=== PATIENT | male | born 1955 | race Caucasian/White ===

== ENCOUNTER 2016-03-27 08:36 | Observation (INO) | payer OTHER, MEDICAID ==
[~2016-03-27] VITALS: Ht 182.9 cm; Wt 125.0 kg
[~2016-03-27 08:36] MED LIST: ACCOLATE 220 MG/1 TA PO; ACCOLATE10 MG PO; ASPIRIN E.C. 8181 MG PO; BIAXIN FILMTAB500 MG PO; CEFACLOR PO; CETIRIZINE10 MG PO; CIPRO 500MG TA500 MG PO; CLEOCIN HC150 MG/CAP PO; COLACE 100100 MG/CAP PO; COLACE100 MG PO; COMBIVENT INH14.7 GM IH; COUMADIN 5MG5 MG/TAB PO; COUMADIN3 MG PO; DESYREL 50MG50 MG PO; DIOVAN; DIOVAN80 MG PO; FLOMAX 0.40.4 MG/CAP PO; K-DUR 2020 MEQ PO; LASIX 40MG TABL40 MG PO; LEVAQUIN 750MG750 M1 PO; LEVAQUIN 750MG750 MG PO; LIDODERM PATCH TP; LOPRESSOR 225 MG/TAB PO; LORTAB 7.5/5001 TAB PO; LOVENOX150 MG/ML SC; NORCO 325 MG-51 TAB PO; NORCO 325 MG-7.1 TAB PO; PERCOCET 325 MG1 TA2 PO; PREDNISONE20 MG PO; PROMETHAZINE V473 M2 PO; RAPAFLO8 MG PO; RAYOS5 MG PO; SENOKOT TABLET1 EA PO; SINGULAIR 110 MG/TAB PO; TOPROL XL 25MG25 MG PO; TOPROL XL50 MG PO; TUSS PO; TYLENOL 325MG325 MG PO; TYLENOL PM EXTR1 TA1 PO; VALIUM PO; ZITHROMAX 250M250 MG PO; ZITHROMAX Z PA250 MG PO; ZITHROMAX500 M2 PO; ZOFRAN 4MG T4 MG/TAB PO; ZYRTEC 10MG10 MG PO; [UNRECOGNIZED DRUG - OTHER] PO
[2016-03-27 09:34] LABS: BASO # 0.1 (0.0-0.2); BASO % 0.9 % (0.0-2.0); EOS # 0.2 (0.0-0.7); EOS % 2.1 % (0-4.0); GRAN # 5.8 (1.4-6.5); GRAN % 65.5 % (42.2-75.2); HEMATOCRIT 43.2 % (42.0-52.0); HEMOGLOBIN 13.4 g/dl (13.5-18.0); LYMPH # 1.8 (1.2-3.4); MEAN CELL VOLUME 86 fl (80.0-100.0); MEAN CORPUSCULAR HEMOGLOBIN 27 pg (27.0-31.0); MEAN CORPUSCULAR HGB CONC 31 g/dl (33.0-37.0); MONO % 10.8 % (1.7-9.3); PLATELET COUNT 252 K/mm3 (130-400); REDCELL DISTRIBUTION WIDTH-CV 15.7 % (11.5-14.5); WHITE BLOOD COUNT 8.9 K/mm3 (4.8-10.8)
[2016-03-27 09:39] LABS: ADJUSTED CALCIUM 8.9 mg/dL (8.4-10.2); ALBUMIN 4.2 gm/dL (3.5-5.0); CALCIUM 9.1 mg/dL (8.4-10.2); CREATININE, serum 0.85 mg/dL (0.66-1.25); POTASSIUM 3.9 mmol/L (3.4-5.0); TOTAL PROTEIN 7.8 gm/dL (6.4-8.2)
[2016-03-27 09:42] LABS: PROTHROMBIN TIME 39.3 SECONDS (9.7-12.8)
[2016-03-27 09:45] LABS: INR 3.4 (0.8-3.0)
[2016-03-27] MEDS ORDERED: COUMADIN 5MG5 MG/TAB PO (13:45)
[2016-03-27] MEDS ORDERED: COUMADIN 77.5 MG/TAB PO (13:47)
[2016-03-27 15:08] VITALS: BP 117/69; PULSE 55; TEMP 98.2
[2016-03-27 19:16] VITALS: BP 144/77; PULSE 61; TEMP 97.6
[2016-03-27 22:35] VITALS: BP 110/73; PULSE 56
[2016-03-28 03:20] VITALS: BP 118/69; PULSE 60; TEMP 98.7
[2016-03-28 07:39] LABS: HEMATOCRIT 37.6 % (42.0-52.0)
[2016-03-28 07:40] LABS: PROTHROMBIN TIME 40.4 SECONDS (9.7-12.8)
[2016-03-28 07:41] LABS: HEMOGLOBIN 11.8 g/dl (13.5-18.0)
[2016-03-28 07:48] LABS: INR 3.5 (0.8-3.0)
[2016-03-28 08:15] VITALS: BP 109/59; PULSE 58; TEMP 98
[2016-03-28 11:18] VITALS: BP 110/40; PULSE 56; TEMP 98.1
== END 2016-03-28 11:41 | disposition home or self-care (01) ==
LOC: COL.ER 08:36 → MEDICAL 12:16
PROVIDERS: Emergency Medicine; Physician Assistant
DX: R04.0 Epistaxis (principal); D64.9 Anemia, unspecified; R51 Headache; Z79.01 Long term (current) use of anticoagulants; I10 Essential (primary) hypertension; Z95.2 Presence of prosthetic heart valve
CPT/HCPCS: G0378; J1170; J2270; J2405; J7030

== ENCOUNTER 2016-04-08 10:48 | Emergency (ER) | payer OTHER ==
[~2016-04-08] VITALS: Ht 182.9 cm; Wt 120.5 kg
[~2016-04-08 10:48] MED LIST changes: +COUMADIN 77.5 MG/TAB PO
[2016-04-08 10:53] VITALS: BP 148/84; PULSE 61; TEMP 96.4
[2016-04-08 11:45] LABS: BASO # 0.1 (0.0-0.2); BASO % 0.9 % (0.0-2.0); EOS # 0.3 (0.0-0.7); EOS % 2.8 % (0-4.0); GRAN # 6.1 (1.4-6.5); HEMATOCRIT 39.1 % (42.0-52.0); HEMOGLOBIN 12.3 g/dl (13.5-18.0); INR 2.4 (0.8-3.0); LYMPH # 1.6 (1.2-3.4); LYMPH % 17.6 % (20.0-51.0); MEAN CELL VOLUME 87 fl (80.0-100.0); MEAN CORPUSCULAR HEMOGLOBIN 27 pg (27.0-31.0); MEAN CORPUSCULAR HGB CONC 32 g/dl (33.0-37.0); MEAN PLATELET VOLUME 12.6 fl (7.4-10.4); MONO % 10.3 % (1.7-9.3); PLATELET COUNT 278 K/mm3 (130-400); PROTHROMBIN TIME 26.9 SECONDS (9.7-12.8); REDCELL DISTRIBUTION WIDTH-CV 15.9 % (11.5-14.5); WHITE BLOOD COUNT 9.2 K/mm3 (4.8-10.8)
[2016-04-08 11:49] LABS: ADJUSTED CALCIUM 8.6 mg/dL (8.4-10.2); ALBUMIN 4.1 gm/dL (3.5-5.0); BILIRUBIN,TOTAL 1.8 mg/dL (0.0-1.0); CALCIUM 8.7 mg/dL (8.4-10.2); CREATININE, serum 0.72 mg/dL (0.66-1.25); TOTAL PROTEIN 7.4 gm/dL (6.4-8.2)
== END 2016-04-08 12:12 | disposition home or self-care (01) ==
LOC: COL.ER 10:48
PROVIDERS: Physician Assistant
DX: R04.0 Epistaxis (principal)

== ENCOUNTER 2016-04-13 09:40 | Day surgery (SDC) | payer OTHER ==
[~2016-04-13] VITALS: Ht 182.9 cm; Wt 122.7 kg
[2016-04-13] VITALS (9 sets, daily range): BP systolic 104–143; BP diastolic 48–62; PULSE 55–91; TEMP 98–98.6
[2016-04-13] MEDS ORDERED: CEPHALEXIN500 M1 PO (10:56)
[2016-04-13] MEDS ORDERED: LOVENOX 100100 MG/ML SQ (10:57)
[2016-04-13] MEDS ORDERED: LOVENOX 3030 MG/0.3 SQ (10:57)
== END 2016-04-13 18:35 | disposition home or self-care (01) ==
LOC: SDCO 09:40
DX: R04.0 Epistaxis (principal); Z95.2 Presence of prosthetic heart valve; Z86.711 Personal history of pulmonary embolism; Z79.01 Long term (current) use of anticoagulants
CPT/HCPCS: J2270; J2370; J2704; J3010; J7120

== ENCOUNTER 2017-04-03 16:32 | Emergency (ER) | payer OTHER ==
[~2017-04-03] VITALS: Ht 185.4 cm; Wt 125.0 kg
[~2017-04-03 16:32] MED LIST changes: +CEPHALEXIN500 M1 PO; +LOVENOX 100100 MG/ML SQ; +LOVENOX 3030 MG/0.3 SQ
[2017-04-03 16:34] VITALS: BP 135/82; TEMP 98.9
[2017-04-03 17:25] LABS: HEMATOCRIT 40.8 % (42.0-52.0); HEMOGLOBIN 12.8 g/dl (13.5-18.0); MEAN CELL VOLUME 86 fl (80.0-100.0); MEAN CORPUSCULAR HEMOGLOBIN 27 pg (27.0-31.0); MEAN CORPUSCULAR HGB CONC 31 g/dl (33.0-37.0); MEAN PLATELET VOLUME 11.4 fl (7.4-10.4); PLATELET COUNT 302 K/mm3 (130-400); RED BLOOD COUNT 4.74 M/mm3 (4.20-5.60); REDCELL DISTRIBUTION WIDTH-CV 15.7 % (11.5-14.5)
[2017-04-03 17:37] LABS: BAND 7 % (0-10); LYMPHOCYTE 8 % (20.0-51.0); NEUTROPHILS 73 % (42.0-75.2); PLATELET ESTIMATE NORMAL (NORMAL)
[2017-04-03 17:45] LABS: ERYTHROCYTE SEDIMENTATION RATE 9 mm/hr (0-30)
[2017-04-03 17:48] LABS: ALBUMIN 4.1 gm/dL (3.5-5.0); BILIRUBIN,TOTAL 1.7 mg/dL (0.0-1.0); CALCIUM 8.8 mg/dL (8.4-10.2); CREATININE, serum 1.01 mg/dL (0.66-1.25); POTASSIUM 3.7 mmol/L (3.4-5.0); TOTAL PROTEIN 7.4 gm/dL (6.4-8.2)
[2017-04-03 17:50] LABS: C-REACTIVE PROTEIN 1.3 mg/dL (0.0-0.9); URIC ACID 8.5 mg/dL (3.5-8.5)
[2017-04-03 17:53] LABS: INR 3.4 (0.8-3.0); PROTHROMBIN TIME 40.7 SECONDS (9.7-12.8)
[2017-04-03] MEDS ORDERED: MEDROL 4MG DOSPA4 MG PO (18:24)
[2017-04-03] MEDS ORDERED: PERCOCET 325 MG1 TA2 PO (18:24)
[2017-04-03 18:51] VITALS: PULSE 65
== END 2017-04-03 18:51 | disposition home or self-care (01) ==
LOC: COL.ER 16:32
PROVIDERS: Emergency Medicine
DX: M25.571 Pain in right ankle and joints of right foot (principal); I10 Essential (primary) hypertension; M10.9 Gout, unspecified; Z86.711 Personal history of pulmonary embolism; Z95.2 Presence of prosthetic heart valve; Z79.01 Long term (current) use of anticoagulants
CPT/HCPCS: J1170; J2405; J7512

== ENCOUNTER → 2017-12-07 | Outpatient (CLI) | payer OTHER ==
[~2017-12-07] MED LIST changes: +MEDROL 4MG DOSPA4 MG PO
== END ==
LOC: COL.VAS 08:18
DX: I35.8 Other nonrheumatic aortic valve disorders (principal); I51.7 Cardiomegaly; Z95.2 Presence of prosthetic heart valve

== ENCOUNTER 2018-01-14 11:38 | Inpatient (IN) | payer OTHER ==
[~2018-01-14] VITALS: Ht 182.9 cm; Wt 121.5 kg
[2018-01-14] MEDS ORDERED: SYNTHROID0.05 MG/TA PO (12:08)
[2018-01-14 12:23] LABS: BASO # 0.1 (0.0-0.2); BASO % 0.8 % (0.0-2.0); EOS # 0.2 (0.0-0.7); EOS % 2.2 % (0-4.0); GRAN % 75.9 % (42.2-75.2); HEMATOCRIT 43.5 % (42.0-52.0); LYMPH # 1.1 (1.2-3.4); LYMPH % 10.9 % (20.0-51.0); MEAN CELL VOLUME 85 fl (80.0-100.0); MEAN CORPUSCULAR HEMOGLOBIN 27 pg (27.0-31.0); MEAN CORPUSCULAR HGB CONC 32 g/dl (33.0-37.0); MEAN PLATELET VOLUME 13.1 fl (7.4-10.4); MONO % 9.9 % (1.7-9.3); PLATELET COUNT 263 K/mm3 (130-400); RED BLOOD COUNT 5.13 M/mm3 (4.20-5.60); REDCELL DISTRIBUTION WIDTH-CV 14.9 % (11.5-14.5)
[2018-01-14 12:26] LABS: ALBUMIN 4.1 gm/dL (3.5-5.0); BILIRUBIN,TOTAL 2.1 mg/dL (0.0-1.0); CALCIUM 8.4 mg/dL (8.4-10.2); CREATININE, serum 0.6 mg/dL (0.66-1.25); POTASSIUM 4.7 mmol/L (3.4-5.0); TOTAL PROTEIN 7.6 gm/dL (6.4-8.2)
[2018-01-14 12:29] LABS: INR 2.3 (0.8-3.0); PROTHROMBIN TIME 26.4 SECONDS (9.7-12.8)
[2018-01-14 12:31] LABS: PARTIAL THROMBOPLASTIN TIME 41.3 SECONDS (26.0-37.0)
[2018-01-14 12:37] LABS: TROPONIN-I 0.016 ng/mL (0.000-0.034)
[2018-01-14 16:11] VITALS: BP 109/54; PULSE 65; TEMP 98.1
[2018-01-14 17:14] VITALS: BP 133/75; PULSE 62
[2018-01-14 17:16] VITALS: BP 129/65; PULSE 66
[2018-01-14 17:18] VITALS: BP 132/78; PULSE 72
[2018-01-14 20:57] VITALS: BP 142/65; PULSE 72; TEMP 98.4
[2018-01-15] VITALS (12 sets, daily range): BP systolic 119–157; BP diastolic 59–87; PULSE 62–91; TEMP 98–98.2
[2018-01-15 07:28] LABS: BASO # 0.1 (0.0-0.2); BASO % 0.7 % (0.0-2.0); EOS # 0.3 (0.0-0.7); EOS % 3.6 % (0-4.0); GRAN # 5.8 (1.4-6.5); GRAN % 66.8 % (42.2-75.2); HEMATOCRIT 42.2 % (42.0-52.0); HEMOGLOBIN 13.5 g/dl (13.5-18.0); LYMPH # 1.6 (1.2-3.4); LYMPH % 18.2 % (20.0-51.0); MEAN CELL VOLUME 86 fl (80.0-100.0); MEAN CORPUSCULAR HEMOGLOBIN 27 pg (27.0-31.0); MEAN CORPUSCULAR HGB CONC 32 g/dl (33.0-37.0); MONO # 0.9 (0.1-0.6); MONO % 10.1 % (1.7-9.3); PLATELET COUNT 260 K/mm3 (130-400); PROTHROMBIN TIME 34.4 SECONDS (9.7-12.8); RED BLOOD COUNT 4.92 M/mm3 (4.20-5.60); REDCELL DISTRIBUTION WIDTH-CV 14.9 % (11.5-14.5)
[2018-01-15 07:33] LABS: ALBUMIN 3.7 gm/dL (3.5-5.0); BILIRUBIN,TOTAL 2.2 mg/dL (0.0-1.0); CALCIUM 8.3 mg/dL (8.4-10.2); CHOLESTEROL RISK RATIO 4.8; CREATININE, serum 0.68 mg/dL (0.66-1.25); POTASSIUM 3.7 mmol/L (3.4-5.0); TOTAL PROTEIN 6.8 gm/dL (6.4-8.2)
[2018-01-15 07:43] LABS: TROPONIN-I 0.016 ng/mL (0.000-0.034)
[2018-01-15 13:38] LABS: FOLATE (FOLIC ACID) 9.9 ng/mL (7.0-31.4)
[2018-01-17 09:00] LABS: VITAMIN B1 182 nmol/L (70-180)
[2018-01-18 10:53] LABS: RPR (VDRL) Negative (Negative)
== END 2018-01-15 17:44 | disposition short-term general hospital (02) | DRG 301 ==
LOC: COL.ER 11:38 → MEDICAL 14:38
PROVIDERS: Emergency Medicine; Physician Assistant; Psychiatry & Neurology Neurology
DX: I71.2 Thoracic aortic aneurysm, without rupture (principal); G62.9 Polyneuropathy, unspecified; I10 Essential (primary) hypertension; E03.9 Hypothyroidism, unspecified; Z95.2 Presence of prosthetic heart valve; G47.33 Obstructive sleep apnea (adult) (pediatric); Z86.711 Personal history of pulmonary embolism; Z79.01 Long term (current) use of anticoagulants; H53.2 Diplopia
CPT/HCPCS: 99233-AI; 99239; A9502; A9585; J2785; J7030; Q9967

== ENCOUNTER 2018-02-03 04:39 | Emergency (ER) | payer OTHER ==
[~2018-02-03] VITALS: Ht 182.9 cm; Wt 118.2 kg
[~2018-02-03 04:39] MED LIST changes: +SYNTHROID0.05 MG/TA PO
[2018-02-03 04:42] VITALS: TEMP 97
[2018-02-03 05:01] LABS: BASO # 0.1 (0.0-0.2); BASO % 0.8 % (0.0-2.0); EOS # 0.2 (0.0-0.7); EOS % 3.4 % (0-4.0); GRAN # 4.3 (1.4-6.5); GRAN % 60.4 % (42.2-75.2); HEMOGLOBIN 10.4 g/dl (13.5-18.0); LYMPH # 1.6 (1.2-3.4); LYMPH % 23.2 % (20.0-51.0); MEAN CELL VOLUME 87 fl (80.0-100.0); MEAN CORPUSCULAR HEMOGLOBIN 27 pg (27.0-31.0); MEAN CORPUSCULAR HGB CONC 31 g/dl (33.0-37.0); MEAN PLATELET VOLUME 10.6 fl (7.4-10.4); MONO # 0.8 (0.1-0.6); MONO % 11.8 % (1.7-9.3); PLATELET COUNT 442 K/mm3 (130-400); RED BLOOD COUNT 3.83 M/mm3 (4.20-5.60); REDCELL DISTRIBUTION WIDTH-CV 16.3 % (11.5-14.5)
[2018-02-03 05:03] LABS: HEMATOCRIT 33.3 % (42.0-52.0)
[2018-02-03 05:08] LABS: INR 2.1 (0.8-3.0); PROTHROMBIN TIME 24.2 SECONDS (9.7-12.8)
[2018-02-03 05:16] LABS: PARTIAL THROMBOPLASTIN TIME 38.2 SECONDS (26.0-37.0)
[2018-02-03 05:20] LABS: ALBUMIN 3.8 gm/dL (3.5-5.0); BILIRUBIN,TOTAL 1.1 mg/dL (0.0-1.0); CREATININE, serum 0.62 mg/dL (0.66-1.25); TOTAL PROTEIN 7.3 gm/dL (6.4-8.2)
[2018-02-03 05:31] LABS: TROPONIN-I 0.015 ng/mL (0.000-0.034)
[2018-02-03] MEDS ORDERED: MILK OF MA400 MG/52 (05:35)
[2018-02-03] MEDS ORDERED: SINGULAIR 110 MG/TAB PO (05:36)
[2018-02-03] MEDS ORDERED: ALMACONE 360 M360 ML (05:36)
[2018-02-03] MEDS ORDERED: SENNA-LAX8.6 MG (05:37)
[2018-02-03] MEDS ORDERED: ULTRAM 50MG TAB50 MG (05:38)
[2018-02-03] MEDS ORDERED: TYLENOL 325MG325 MG PO (05:38)
[2018-02-03 08:30] VITALS: BP 113/76; PULSE 63
== END 2018-02-03 08:51 | disposition home or self-care (01) ==
LOC: COL.ER 04:39
PROVIDERS: Family Medicine
DX: G89.18 Other acute postprocedural pain (principal); R07.89 Other chest pain; I10 Essential (primary) hypertension; Z98.890 Other specified postprocedural states; Z79.01 Long term (current) use of anticoagulants
CPT/HCPCS: J1170; J2550; Q9967

== ENCOUNTER 2018-04-01 21:44 | Observation (INO) | payer OTHER ==
[~2018-04-01] VITALS: Ht 182.9 cm; Wt 120.0 kg
[~2018-04-01 21:44] MED LIST changes: +ALMACONE 360 M360 ML; +MILK OF MA400 MG/52; +SENNA-LAX8.6 MG; +ULTRAM 50MG TAB50 MG
[2018-04-01 22:27] LABS: BASO # 0.1 (0.0-0.2); BASO % 0.9 % (0.0-2.0); EOS # 0.2 (0.0-0.7); EOS % 2.5 % (0-4.0); GRAN # 5.4 (1.4-6.5); GRAN % 60.5 % (42.2-75.2); HEMATOCRIT 38.3 % (42.0-52.0); HEMOGLOBIN 11.9 g/dl (13.5-18.0); LYMPH % 22.8 % (20.0-51.0); MEAN CELL VOLUME 85 fl (80.0-100.0); MEAN CORPUSCULAR HEMOGLOBIN 26 pg (27.0-31.0); MEAN CORPUSCULAR HGB CONC 31 g/dl (33.0-37.0); MEAN PLATELET VOLUME 11.8 fl (7.4-10.4); MONO # 1.2 (0.1-0.6); PLATELET COUNT 295 K/mm3 (130-400); REDCELL DISTRIBUTION WIDTH-CV 15.7 % (11.5-14.5)
[2018-04-01 22:32] LABS: INR 2.4 (0.8-3.0); PROTHROMBIN TIME 27.2 SECONDS (9.7-12.8)
[2018-04-01 22:35] LABS: PARTIAL THROMBOPLASTIN TIME 38.3 SECONDS (26.0-37.0)
[2018-04-01 22:37] LABS: ALBUMIN 3.8 gm/dL (3.5-5.0); BILIRUBIN,TOTAL 1.4 mg/dL (0.0-1.0); CALCIUM 8.5 mg/dL (8.4-10.2); CREATININE, serum 0.85 mg/dL (0.66-1.25); POTASSIUM 3.6 mmol/L (3.4-5.0); TOTAL PROTEIN 7.1 gm/dL (6.4-8.2)
[2018-04-02] VITALS (227 sets, daily range): BP systolic 115–128; BP diastolic 3–73; PULSE 63–68; TEMP 97.4–98; O2SAT 87–95
[2018-04-02] MEDS ORDERED: TOPROL XL 25MG25 MG PO ×2 (02:03→11:09)
--- NOTE | 2018-04-02 02:16 | NUR ---
Pt admitted to ICU bed 4 at this time. Pt arrived via stretcher and placed on cafeteria monitor upon arrival. Vitals stable upon admission. Pt denies pain at this time and reports no other discomfort. Will notify Dr. Estrella of Pt admission to unit.
[2018-04-02] MEDS ORDERED: ASPIRIN 81M81 MG/TA2 PO (02:35)
--- NOTE | 2018-04-02 02:57 | NUR ---
Admission assessment complete at this time. Plan of care reviewed at bedside with patient et spouse. Vitals stable at this time. Denies pain at this time or any other discomfort. Dr. Estrella at bedside at this time.
--- NOTE | 2018-04-02 07:10 | NUR ---
Bedside report given to Alyssa, Candido.
--- NOTE | 2018-04-02 07:10 | NUR ---
REPORT RECEIVED FROM BRADY. HILL.
--- NOTE | 2018-04-02 09:30 | NUR ---
DR. SMITH AT BEDSIDE FOR ROUNDS. PT IS GOING TO BE DISCHARGED HOME.
[2018-04-02] MEDS ORDERED: TYLENOL 500MG500 MG PO (09:34)
--- NOTE | 2018-04-02 10:51 | NUR ---
connection worker attended clinical rounds and met with patient and spouse to discuss discharge planning. Patient is being discharged this morning and will return home with his spouse. 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 Patient's primary care provider is Dr Correa. Patient denies concerns related to returning home today.
--- NOTE | 2018-04-02 11:20 | NUR ---
PT LEFT WITH ALL HIS BELONGINGS ACCOMPANIED BY AND ESCORTED BY RN. PT AMBULATORY. DISCHARGE EDUCATION/INSRUCTIONS DISCUSSED WITH PT AND , BOTH VERBALIZED UNDERSTANDING.
== END 2018-04-02 11:20 | disposition home or self-care (01) ==
LOC: COL.ER 21:44 → ICU 04-02 00:34
PROVIDERS: Family Medicine; ADMIT Internal Medicine Pulmonary Disease
DX: R07.9 Chest pain, unspecified (principal); I38 Endocarditis, valve unspecified; E03.9 Hypothyroidism, unspecified; I10 Essential (primary) hypertension; G47.33 Obstructive sleep apnea (adult) (pediatric); Z95.2 Presence of prosthetic heart valve; Z79.01 Long term (current) use of anticoagulants; Z79.82 Long term (current) use of aspirin; Z90.49 Acquired absence of other specified parts of digestive tract; Z88.8 Allergy status to other drugs, medicaments and biological substances; Z88.0 Allergy status to penicillin; Z86.711 Personal history of pulmonary embolism
CPT/HCPCS: G0378; J2270; Q9967

== ENCOUNTER 2018-05-18 08:32 | Inpatient (IN) | payer OTHER ==
[~2018-05-18] VITALS: Ht 182.9 cm; Wt 123.3 kg
[2018-05-18] VITALS (720 sets, daily range): BP systolic 84–106; BP diastolic 55–62; PULSE 54–69; TEMP 97.6–98.8; O2SAT 88–99
[~2018-05-18 08:32] MED LIST changes: +ASPIRIN 81M81 MG/TA2 PO; +TYLENOL 500MG500 MG PO
[2018-05-18 09:07] LABS: BASO # 0.1 (0.0-0.2); BASO % 0.4 % (0.0-2.0); EOS # 0.1 (0.0-0.7); EOS % 0.6 % (0-4.0); GRAN # 12.9 (1.4-6.5); GRAN % 84.8 % (42.2-75.2); HEMATOCRIT 46.1 % (42.0-52.0); HEMOGLOBIN 14.3 g/dl (13.5-18.0); LYMPH # 0.7 (1.2-3.4); LYMPH % 4.8 % (20.0-51.0); MEAN CELL VOLUME 85 fl (80.0-100.0); MEAN CORPUSCULAR HEMOGLOBIN 26 pg (27.0-31.0); MEAN CORPUSCULAR HGB CONC 31 g/dl (33.0-37.0); MEAN PLATELET VOLUME 12.9 fl (7.4-10.4); MONO # 1.4 (0.1-0.6); PLATELET COUNT 295 K/mm3 (130-400); RED BLOOD COUNT 5.43 M/mm3 (4.20-5.60); REDCELL DISTRIBUTION WIDTH-CV 16.2 % (11.5-14.5)
[2018-05-18 09:08] LABS: PROTHROMBIN TIME 34.7 SECONDS (9.7-12.8)
[2018-05-18 09:10] LABS: BILIRUBIN,TOTAL 2.4 mg/dL (0.0-1.0); CREATININE, serum 1.09 mg/dL (0.66-1.25); POTASSIUM 4.2 mmol/L (3.4-5.0); TOTAL PROTEIN 7.5 gm/dL (6.4-8.2)
[2018-05-18] MEDS ORDERED: CALCIUM CARBON650 M2 PO (09:19)
[2018-05-18] MEDS ORDERED: MAGNESIUM200 MG PO (09:19)
[2018-05-18 09:22] LABS: TROPONIN-I 0.024 ng/mL (0.000-0.035)
[2018-05-18 10:35] LABS: COLLECTION METHOD CLEAN CATCH
[2018-05-18 10:47] LABS: MUCOUS Present /lpf; PH 8 (5-8); SQUAMOUS EPITHELIAL 0-2 /hpf; URINE APPEARANCE Hazy; URINE BACTERIA None Seen /hpf; URINE BILIRUBIN Negative (NEGATIVE); URINE BLOOD 1+ (NEGATIVE); URINE COLOR Yellow; URINE GLUCOSE 1+ (NEGATIVE); URINE KETONE Negative (NEGATIVE); URINE LEUKOCYTE ESTERASE Negative (NEGATIVE); URINE NITRATE Negative (NEGATIVE); URINE PROTEIN(semi-quant) 2+ (NEGATIVE); URINE UROBILINOGEN Negative (NEGATIVE)
--- NOTE | 2018-05-18 11:30 | NUR ---
Patient arrives from ED. He is oriented to room and placed on monitors and tele. BP hypotensive. IVF bolus infusing. Assessment completed. Care assumed at this time.
[2018-05-18] MEDS ORDERED: TOPROL XL 50MG50 MG PO (12:46)
--- NOTE | 2018-05-18 14:11 | NUR ---
ADMISSION B AND PLAN OF CARE REVIEWED WITH PATIENT, HIS AND PT'S DAUGHTER. QUESTIONS ANSWERED.
--- NOTE | 2018-05-18 14:49 | NUR ---
BLOOD PRESSURES CONSISTENTLY LOW AFTER 3RD LITER NS BOLUS. NS RUNNING AT 125 CC/HR PRESCRIBED RATE. DR. MENDES ROUNDS IN UNIT TO SEE ANOTHER PATIENT AND IS UPDATED. ORDER RECEIVED TO CALL SURGICAL CONSULT FOR CENTRAL LINE PLACEMENT. DR. MIRZA CALLED AND INFORMED ABOUT CONSULT. HE STATES HE WILL BE HERE SOON.
--- NOTE | 2018-05-18 15:30 | NUR ---
DR. MIRZA COMES TO PLACE CENTRAL LINE. AFTER DISCUSSING WITH PATIENT, REVIEWING INR PANEL AND THEN DISCUSSING WITH DR. MENDES THEY HAVE DECIDED NOT TO PLACE CENTRAL LINE. 2ND PERIPHERAL LINE WILL BE PLACED BY NURSING STAFF.
--- NOTE | 2018-05-18 19:18 | NUR ---
Bedside report given to LIZ Bower
--- NOTE | 2018-05-18 20:30 | NUR ---
05/18/18: @190: SHIFT CHANGE/REPORT PT DENIED PAIN JUST C/O TIREDNESS @194: PT C/O OF SUDDEN HEADACHE LOCATED IN ACROSS FOREHEAD DESCRIBED SQUEEZING AND RATED 7/10. PT STATES HE RARELY EVER GETS HEADACHES. @2030: PT STATES IMPROVED HEADACHE RATING 3-4/10 BUT NOW STATES HE HAS HAVING OFF AND ON HOLD AND COLD SPELLS
--- NOTE | 2018-05-18 21:25 | NUR ---
INFLUENZA SWAB COLLECTED AND DELIVERED TO LAB.
--- NOTE | 2018-05-18 21:45 | NUR ---
PT SITTING ON SIDE OF BED WATCHING TV.
--- NOTE | 2018-05-18 22:05 | NUR ---
PT C/O CONTINUED HEADACHE. PT STATES HEADACHE HAS WORSENED IN PAST 5-10 MINUTES RATING IT 6-7/10 ON PAIN SCALE. PT STATES HE DOES NOT WANT TYLENOL FOR PAIN.
--- NOTE | 2018-05-18 22:40 | NUR ---
CONTACTED HOSPITALIST NAMAN REGARDING BP OF 89/77, 86/48, 98/60 WITH BRADYCARDIA, PT CONTINING C/O HEADACHE AND PRESSURE IN CHEST. HOSPITALIST ACKNOWLEDGES AND ORDERS FOR EKG AND LABS. 2242: LAB CONTACTED FOR LAB DRAW 2243: RT CONTACTED FOR EKG
--- NOTE | 2018-05-18 23:03 | NUR ---
2303: CT CONTACTED AND ARE NOT READY FOR PT. 2315: CT CONTACTED AND ARE NOT READY FOR PT.
[2018-05-18 23:07] LABS: BASO # 0.1 (0.0-0.2); BASO % 0.7 % (0.0-2.0); EOS # 0.2 (0.0-0.7); EOS % 2.8 % (0-4.0); GRAN # 5.2 (1.4-6.5); GRAN % 61.9 % (42.2-75.2); LYMPH # 1.6 (1.2-3.4); LYMPH % 18.6 % (20.0-51.0); MEAN CELL VOLUME 86 fl (80.0-100.0); MEAN CORPUSCULAR HGB CONC 32 g/dl (33.0-37.0); MEAN PLATELET VOLUME 11.9 fl (7.4-10.4); MONO # 1.3 (0.1-0.6); MONO % 15.6 % (1.7-9.3); PLATELET COUNT 220 K/mm3 (130-400); RED BLOOD COUNT 4.27 M/mm3 (4.20-5.60); REDCELL DISTRIBUTION WIDTH-CV 16.2 % (11.5-14.5)
[2018-05-18 23:09] LABS: HEMATOCRIT 36.8 % (42.0-52.0); HEMOGLOBIN 11.6 g/dl (13.5-18.0); MEAN CORPUSCULAR HEMOGLOBIN 27 pg (27.0-31.0)
[2018-05-18 23:20] LABS: ALBUMIN 3.1 gm/dL (3.5-5.0); BILIRUBIN,TOTAL 1.5 mg/dL (0.0-1.0); CALCIUM 7.9 mg/dL (8.4-10.2); CREATININE, serum 0.86 mg/dL (0.66-1.25); MAGNESIUM 1.9 mg/dL (1.6-2.3); POTASSIUM 3.8 mmol/L (3.4-5.0)
--- NOTE | 2018-05-18 23:25 | NUR ---
PT RATES HEADACHE 2-3/10 FOR PAIN. PT STATES CHEST PRESSURE IS NEARLY GONE.
[2018-05-18 23:37] LABS: TROPONIN-I 0.754 ng/mL (0.000-0.035)
--- NOTE | 2018-05-18 23:42 | NUR ---
PT RATING CP 2/10, CONSTANT, DESCRIBED AN ACHE, AND LOCATED RIGHT MIDSTERNAL.
--- NOTE | 2018-05-18 23:55 | NUR ---
PT PROVIDED MEDICATION FOR PAIN. PT STATING TO HAVE RELIEF WITH MEDICATION RATING PAIN 1/10 FOR HEADACHE AND 2/10 FOR CP.
[2018-05-19] VITALS (990 sets, daily range): BP systolic 106–132; BP diastolic 49–84; PULSE 51–65; TEMP 98.1–98.4; O2SAT 84–98
--- NOTE | 2018-05-19 00:37 | NUR ---
PT LEFT FOR CT VIA BED AT 0023 AND RETURNED AT 0037. UPON COMPLETION OF CT AT 0035 PT C/O WORSENING HEADACHE RATING 6-7/10 LOCATED IN RIGHT SIDE OF FOREHEAD RADIATING TO RIGHT POSTERIOR HEAD. HOSPITALIST NOTIFIED AT 0037 OF HEADACHE.
--- NOTE | 2018-05-19 00:52 | NUR ---
0052: PT SLEEPING ON LEFT SIDE AND HYPOTENSIVE. BP 74/41, HOSPITALIST NAMAN OUTSIDE PT ROOM AND ARE. BP RECYCLED. 0053: BP 73/41, HOSPITALIST AWARE. 0100: BP 71/40, HOSPITALIST AWARE. PT REPOSITIONED SUPINE AND BP RECYCLED. 0101: BP 81/58 0103: BP 93/56
--- NOTE | 2018-05-19 01:30 | NUR ---
NOTIFIED HOSPITALIST ALLISION PT HR HITTING LOW AT 46. HOSPITALIST ACKNOWLEDGED.
[2018-05-19 06:26] LABS: BASO % 0.4 % (0.0-2.0); EOS # 0.2 (0.0-0.7); EOS % 3.3 % (0-4.0); GRAN # 4.5 (1.4-6.5); GRAN % 64.2 % (42.2-75.2); HEMATOCRIT 37.9 % (42.0-52.0); HEMOGLOBIN 11.6 g/dl (13.5-18.0); LYMPH # 1.3 (1.2-3.4); LYMPH % 18.4 % (20.0-51.0); MEAN CELL VOLUME 87 fl (80.0-100.0); MEAN CORPUSCULAR HEMOGLOBIN 27 pg (27.0-31.0); MEAN CORPUSCULAR HGB CONC 31 g/dl (33.0-37.0); MEAN PLATELET VOLUME 12.1 fl (7.4-10.4); MONO # 0.9 (0.1-0.6); MONO % 13.3 % (1.7-9.3); PLATELET COUNT 209 K/mm3 (130-400); RED BLOOD COUNT 4.38 M/mm3 (4.20-5.60); REDCELL DISTRIBUTION WIDTH-CV 16.1 % (11.5-14.5)
[2018-05-19 06:33] LABS: INR 3.1 (0.8-3.0); PROTHROMBIN TIME 35.7 SECONDS (9.7-12.8)
[2018-05-19 06:39] LABS: CALCIUM 7.6 mg/dL (8.4-10.2); CHOLESTEROL RISK RATIO 4.6; CREATININE, serum 0.68 mg/dL (0.66-1.25); POTASSIUM 4.1 mmol/L (3.4-5.0)
[2018-05-19 07:05] LABS: TROPONIN-I 0.459 ng/mL (0.000-0.035)
[2018-05-19 07:06] LABS: TSH w REFLEX 3.1 uIU/mL (0.465-4.680)
--- NOTE | 2018-05-19 07:30 | NUR ---
Bedside report received from LIZ Bower. Patient is sleeping with no s/s distress. BP 104/82. Mckeon Catheter to dependent drainage. Care taken over at this time.
--- NOTE | 2018-05-19 09:28 | NUR ---
Dr. Matt here to see patient. Plan of care discussed. Patient changed to IMCU status. IVF decreased to 75 cc/hr, per MD order.
[2018-05-19] MEDS ORDERED: SLOW-MAG71.5 MG PO (10:43)
[2018-05-19] MEDS ORDERED: K-TAB10 PO (10:43)
--- NOTE | 2018-05-19 11:56 | NUR ---
Dr. Sterling here to see patient for consult.
--- NOTE | 2018-05-19 15:04 | NUR ---
Patient has been living at home with his spouse (Nola Thomas) in [place], [place] and plans to return home upon recovery. Patient is mostly independent with daily living activities yet he does have physical back pains. Patient does not have any anticipated durable medical equipment needs at this time, his primary care physician is Dr. Ron Chappell as well as medical care from Dr. Noe and Mercedes Gamble as needed. Patient's pharmacy is [facility], and he does have advance directives for healthcare completed. Patient's daughter (Eveline) is also supportive as needed. No further needs at this time and psychosocial rehabilitation counselor will follow as needed.
--- NOTE | 2018-05-19 19:24 | NUR ---
REPORT GIVEN TO LIZ AKINS. PLAN OF CARE REVIEWED. CARE TURNED OVER
--- NOTE | 2018-05-19 19:30 | NUR ---
Bedside report received from LIZ Morgan.
--- NOTE | 2018-05-19 20:00 | NUR ---
Assessment complete. Patient is sitting up in the recliner watching tv. Patient has no complaints of pain or discomfort. Says he feels great. Assessment reveals +1 pitting edema in the lower extremities and a murmur with the mechanical heart valve sounds. All other findings are WNL. Vitals remain stable. Patient has no other needs at this time. Will continue to monitor. Call light within reach.
[2018-05-20] VITALS (324 sets, daily range): BP systolic 105–153; BP diastolic 65–92; PULSE 55–63; TEMP 97.7–98.1; O2SAT 85–94
--- NOTE | 2018-05-20 | NUR ---
Patient sleeping in the recliner at this time. Easily awakens to name. No complaints of pain or discomfort. Requests to sleep in the recliner. No other needs at this time. Will continue to monitor. Call light within reach.
--- NOTE | 2018-05-20 04:00 | NUR ---
Patient asleep in the recliner. Awakens easily. No complaints of pain or discomfort. Vitals remain stable. No current needs at this time. Will continue to monitor. Call light within reach.
[2018-05-20 05:06] LABS: BASO % 0.4 % (0.0-2.0); EOS # 0.2 (0.0-0.7); GRAN # 7.2 (1.4-6.5); GRAN % 74.6 % (42.2-75.2); HEMATOCRIT 39.8 % (42.0-52.0); HEMOGLOBIN 12.3 g/dl (13.5-18.0); LYMPH # 1.2 (1.2-3.4); LYMPH % 11.9 % (20.0-51.0); MEAN CELL VOLUME 86 fl (80.0-100.0); MEAN CORPUSCULAR HEMOGLOBIN 27 pg (27.0-31.0); MEAN CORPUSCULAR HGB CONC 31 g/dl (33.0-37.0); MEAN PLATELET VOLUME 12.7 fl (7.4-10.4); MONO # 1.1 (0.1-0.6); MONO % 10.8 % (1.7-9.3); PLATELET COUNT 227 K/mm3 (130-400); RED BLOOD COUNT 4.64 M/mm3 (4.20-5.60); REDCELL DISTRIBUTION WIDTH-CV 15.7 % (11.5-14.5)
[2018-05-20 05:15] LABS: CALCIUM 8.5 mg/dL (8.4-10.2); CREATININE, serum 0.56 mg/dL (0.66-1.25); POTASSIUM 3.9 mmol/L (3.4-5.0)
--- NOTE | 2018-05-20 07:10 | NUR ---
Bedside report given to LIZ De Paz and LIZ Lee
--- NOTE | 2018-05-20 07:24 | NUR ---
Received Report from LIZ Rodríguez. Patient was awake sitting in his chair. FLuids varified. Will continue to monitor patient.
[2018-05-20 08:51] LABS: INR 3.1 (0.8-3.0); PROTHROMBIN TIME 34.9 SECONDS (9.7-12.8)
--- NOTE | 2018-05-20 09:20 | NUR ---
Dr. Matt visited with patient. Answered all questions. Fluids and Mckeon scheduled to be discontinued. Dr. Matt said patient may be transfered to medical/surgical floor. Will continue to monitor patient.
--- NOTE | 2018-05-20 09:33 | NUR ---
SW attended clinical rounds. Possible transfer to the floor today, 3/. SW requested PT/OT. SW to continue to follow.
--- NOTE | 2018-05-20 09:34 | NUR ---
Initial visit; Patient thanked Boiler Reliner for looing in on him and offering prayer and encouragement.
--- NOTE | 2018-05-20 14:00 | NUR ---
CALLED AND GAVE REPORT TO LIZ ARNETT. PATIENT IS SITTING IN HIS ROOM WITH HIS AT THIS TIME. WAITING TO TRANSPORT PATIENT TO ROOM.
--- NOTE | 2018-05-20 14:58 | NUR ---
ARMINENT TRANSFERED TO THE MEDICAL FLOOR. PATIENT HAD ALL BELONGINGS. PATIENT TRANSPORTED VIA WHEELCHAIR.
--- NOTE | 2018-05-20 18:35 | NUR ---
Since arriving to the floor the pt has been resting quietly. He has remained free of pain. His has remained at the bedside; all questions answered. Pt is sitting up in the bed looking at the menu at this time and he denies further needs. Call light within reach.
--- NOTE | 2018-05-20 19:23 | NUR ---
Report given to LIZ Alatorre.
--- NOTE | 2018-05-20 20:15 | NUR ---
Shift assessment complete. Pt resting in bedside recliner, awake, a&o, cooperative c cares. Pt reports "some" int back pain, denies any other c/o. INT x2 patent. Pt ind in room. Denies needs at this time. at bedside. Call light in reach, will monitor.
[2018-05-21 00:35] VITALS: BP 126/59; PULSE 62; TEMP 97.8
[2018-05-21 06:16] LABS: BASO # 0.1 (0.0-0.2); BASO % 0.6 % (0.0-2.0); EOS # 0.2 (0.0-0.7); EOS % 2.4 % (0-4.0); GRAN # 5.5 (1.4-6.5); GRAN % 70.3 % (42.2-75.2); HEMATOCRIT 39.4 % (42.0-52.0); HEMOGLOBIN 12.4 g/dl (13.5-18.0); LYMPH # 1.3 (1.2-3.4); MEAN CELL VOLUME 84 fl (80.0-100.0); MEAN CORPUSCULAR HEMOGLOBIN 27 pg (27.0-31.0); MEAN CORPUSCULAR HGB CONC 32 g/dl (33.0-37.0); MONO # 0.8 (0.1-0.6); MONO % 10.4 % (1.7-9.3); PLATELET COUNT 217 K/mm3 (130-400); RED BLOOD COUNT 4.68 M/mm3 (4.20-5.60); REDCELL DISTRIBUTION WIDTH-CV 15.5 % (11.5-14.5)
[2018-05-21 06:27] LABS: CALCIUM 8.6 mg/dL (8.4-10.2); CREATININE, serum 0.66 mg/dL (0.66-1.25); POTASSIUM 3.9 mmol/L (3.4-5.0)
--- NOTE | 2018-05-21 07:00 | NUR ---
Report on to LIZ Wallace.
--- NOTE | 2018-05-21 07:20 | NUR ---
Assessment completed. VSS. INT x2, patent to L hand and L a.c. with no signs of redness noted. Telemetry on. States "just feeling dull and achy." Resting in chair during assessment and upon leaving room. No further needs.
[2018-05-21 07:27] VITALS: BP 133/78; PULSE 56; TEMP 97.7
[2018-05-21 08:13] LABS: INR 3.1 (0.8-3.0); PROTHROMBIN TIME 35.7 SECONDS (9.7-12.8)
--- NOTE | 2018-05-21 10:12 | NUR ---
Follow-up visit; Patient and his thanked Office System Analyst for looking in on him and continuing to keep him in her prayers. Patient states he is doing well.
--- NOTE | 2018-05-21 10:45 | NUR ---
This nurse is taking over cares for this patient. Pt is sitting up in chair at this time. He is A/O x3. His breathing is even and unlabored on RA. Pt denies any pain or needs at this time. PT in to work with patient at this time.
[2018-05-21 11:05] VITALS: BP 125/70; PULSE 62; TEMP 98.3
--- NOTE | 2018-05-21 11:06 | NUR ---
Walking halls with therapy. Tolerated well. Returned back to room at 1055.
--- NOTE | 2018-05-21 11:07 | NUR ---
Assessment unchanged. VSS. Pt. sitting in chair. States no further needs.
[2018-05-21] MEDS ORDERED: CEFTIN500 MG PO (11:35)
--- NOTE | 2018-05-21 12:34 | NUR ---
Discharge instructions reviewed with patient and . All questions answered at this time. IV to LFA and LAC dc'd, catheter tip intact. Patient walked out at this time.
--- NOTE | 2018-05-21 14:01 | NUR ---
SW and SW student attended clinical rounding. Patient is dc home today with his spouse. PT is recommending home and he is switching to oral antibiotics. No discharge needs Identified.
== END 2018-05-21 12:38 | disposition home or self-care (01) | DRG 871 ==
LOC: COL.ER 08:32 → MEDICAL 10:35 → ICU 10:35 → MEDICAL 05-20 14:53
PROVIDERS: Emergency Medicine; Nurse Practitioner Family; Physician Assistant; ADMIT Hospitalist
DX: A41.9 Sepsis, unspecified organism (principal); I21.A1 Myocardial infarction type 2; N10 Acute pyelonephritis; I10 Essential (primary) hypertension; Z79.01 Long term (current) use of anticoagulants; Z95.2 Presence of prosthetic heart valve; E03.9 Hypothyroidism, unspecified; G47.33 Obstructive sleep apnea (adult) (pediatric); Z86.711 Personal history of pulmonary embolism; R73.9 Hyperglycemia, unspecified; R51 Headache
CPT/HCPCS: 99223-AI; 99232-AI; 99239; A4216; J0692; J0696; J2270; J7030; Q9967

== ENCOUNTER 2018-06-07 13:59 | Outpatient (RCR) | payer OTHER ==
[~2018-06-07 13:59] MED LIST changes: +CALCIUM CARBON650 M2 PO; +CEFTIN500 MG PO; +K-TAB10 PO; +MAGNESIUM200 MG PO; +SLOW-MAG71.5 MG PO; +TOPROL XL 50MG50 MG PO
== END 2018-07-07 | disposition home or self-care (01) ==
LOC: COL.CR
DX: Z48.812 Encounter for surgical aftercare following surgery on the circulatory system (principal); Z95.4 Presence of other heart-valve replacement

== ENCOUNTER → 2018-07-03 | Outpatient (CLI) | payer OTHER | LOC: COL.RAD 15:08 | DX: G45.9 Transient cerebral ischemic attack, unspecified (principal) | CPT/HCPCS: A9585 ==

== ENCOUNTER 2018-09-13 07:10 | Emergency (ER) | payer OTHER ==
[~2018-09-13] VITALS: Ht 182.9 cm; Wt 118.2 kg
[2018-09-13] MEDS ORDERED: COUMADIN 1010 MG/TAB PO (07:39)
[2018-09-13 07:46] LABS: BASO # 0.1 (0.0-0.2); BASO % 0.7 % (0.0-2.0); EOS # 0.2 (0.0-0.7); EOS % 2.3 % (0-4.0); GRAN # 4.7 (1.4-6.5); GRAN % 66.9 % (42.2-75.2); HEMATOCRIT 38.1 % (42.0-52.0); LYMPH # 1.3 (1.2-3.4); MEAN CELL VOLUME 87 fl (80.0-100.0); MEAN CORPUSCULAR HEMOGLOBIN 27 pg (27.0-31.0); MEAN CORPUSCULAR HGB CONC 32 g/dl (33.0-37.0); MEAN PLATELET VOLUME 11.1 fl (7.4-10.4); MONO # 0.8 (0.1-0.6); MONO % 11.2 % (1.7-9.3); PLATELET COUNT 268 K/mm3 (130-400); REDCELL DISTRIBUTION WIDTH-CV 15.6 % (11.5-14.5)
[2018-09-13] MEDS ORDERED: PRINIVIL5 MG PO (07:47)
[2018-09-13 07:54] LABS: INR 2.9 (0.8-3.0); PROTHROMBIN TIME 34.4 SECONDS (9.7-12.8)
[2018-09-13 08:49] VITALS: BP 112/59; PULSE 60; TEMP 98
== END 2018-09-13 09:03 | disposition home or self-care (01) ==
LOC: COL.ER 07:10
PROVIDERS: Family Medicine
DX: R04.0 Epistaxis (principal); I10 Essential (primary) hypertension; Z86.711 Personal history of pulmonary embolism; Z79.01 Long term (current) use of anticoagulants; Z79.82 Long term (current) use of aspirin

== ENCOUNTER 2018-09-14 07:54 | Emergency (ER) | payer OTHER ==
[~2018-09-14] VITALS: Ht 182.9 cm; Wt 119.1 kg
[~2018-09-14 07:54] MED LIST changes: +COUMADIN 1010 MG/TAB PO; +PRINIVIL5 MG PO
[2018-09-14 08:51] LABS: HEMATOCRIT 37.7 % (42.0-52.0); HEMOGLOBIN 11.8 g/dl (13.5-18.0)
[2018-09-14 09:00] LABS: PROTHROMBIN TIME 35.8 SECONDS (9.7-12.8)
[2018-09-14 11:46] LABS: BASO # 0.1 (0.0-0.2); BASO % 0.6 % (0.0-2.0); EOS # 0.1 (0.0-0.7); EOS % 1.3 % (0-4.0); GRAN # 7.5 (1.4-6.5); GRAN % 78.2 % (42.2-75.2); HEMOGLOBIN 10.8 g/dl (13.5-18.0); LYMPH % 10.4 % (20.0-51.0); MEAN CELL VOLUME 88 fl (80.0-100.0); MEAN CORPUSCULAR HEMOGLOBIN 28 pg (27.0-31.0); MEAN CORPUSCULAR HGB CONC 32 g/dl (33.0-37.0); MEAN PLATELET VOLUME 12.2 fl (7.4-10.4); MONO # 0.8 (0.1-0.6); MONO % 8.8 % (1.7-9.3); PLATELET COUNT 320 K/mm3 (130-400); REDCELL DISTRIBUTION WIDTH-CV 15.2 % (11.5-14.5)
[2018-09-14 11:49] LABS: HEMATOCRIT 34.3 % (42.0-52.0)
[2018-09-14 12:42] LABS: ALBUMIN 3.5 gm/dL (3.5-5.0); BILIRUBIN,TOTAL 1.4 mg/dL (0.0-1.0); CALCIUM 8.9 mg/dL (8.4-10.2); CREATININE, serum 0.73 (0.66-1.25); TOTAL PROTEIN 6.9 gm/dL (6.4-8.2)
[2018-09-14 13:43] LABS: HEMOGLOBIN 10.4 g/dl (13.5-18.0)
[2018-09-14 14:20] VITALS: BP 104/58; PULSE 73
== END 2018-09-14 14:20 | disposition home or self-care (01) ==
LOC: COL.ER 07:54
PROVIDERS: Nurse Practitioner; Physician Assistant
DX: R04.0 Epistaxis (principal); Z79.01 Long term (current) use of anticoagulants; Z79.82 Long term (current) use of aspirin
CPT/HCPCS: J7030; Q9967

== ENCOUNTER → 2018-11-22 | Outpatient (CLI) | payer MEDICARE, OTHER | LOC: COL.RAD 12:52 | DX: I71.2 Thoracic aortic aneurysm, without rupture (principal) ==

== ENCOUNTER → 2020-03-04 | Outpatient (CLI) | payer MEDICARE, OTHER ==
[2020-03-04 09:45] LABS: HEMOGLOBIN 11.1 g/dl (13.5-18.0); MEAN CELL VOLUME 85 fl (80.0-100.0); MEAN CORPUSCULAR HEMOGLOBIN 27 pg (27.0-31.0); MEAN CORPUSCULAR HGB CONC 31 g/dl (33.0-37.0); MEAN PLATELET VOLUME 12.4 fl (7.4-10.4); PLATELET COUNT 387 K/mm3 (130-400); RED BLOOD COUNT 4.17 M/mm3 (4.20-5.60); REDCELL DISTRIBUTION WIDTH-CV 15.9 % (11.5-14.5)
[2020-03-04 10:02] LABS: HEMATOCRIT 35.5 % (42.0-52.0)
[2020-03-04 11:05] LABS: ANISOCYTOSIS 1+; BAND 9 % (0-10); BASOPHIL 2 % (0-2); EOSINOPHIL 3 % (0-4); LYMPHOCYTE 9 % (20.0-51.0); NEUTROPHILS 67 % (42.0-75.2)
[2020-03-04 11:08] LABS: HYPOCHROMIA 2+; SCHISTOCYTES 1+
[2020-03-04 11:09] LABS: PLATELET ESTIMATE NORMAL (NORMAL)
== END ==
LOC: COL.RAD 08:57 → COL.LAB 09:09 → COL.RAD 09:09
PROVIDERS: Internal Medicine
DX: R04.2 Hemoptysis (principal)

== ENCOUNTER → 2020-03-04 | Outpatient (CLI) | payer MEDICARE, OTHER | LOC: COL.RAD 15:30 | DX: R04.2 Hemoptysis (principal); Z90.49 Acquired absence of other specified parts of digestive tract; Z95.2 Presence of prosthetic heart valve | CPT/HCPCS: Q9967 ==

== ENCOUNTER 2020-05-11 22:08 | Emergency (ER) | payer MEDICARE, OTHER ==
[~2020-05-11] VITALS: Ht 182.9 cm; Wt 120.5 kg
[2020-05-11 22:09] VITALS: BP 101/73; PULSE 126; TEMP 98.1
[2020-05-13 12:08] LABS: ALBUMIN 4.3 gm/dL (3.5-5.0); BILIRUBIN,TOTAL 1.7 mg/dL (0.0-1.0); CREATININE, serum 1.31 (0.66-1.25); POTASSIUM 3.6 mmol/L (3.4-5.0); TOTAL PROTEIN 7.6 gm/dL (6.4-8.2)
[2020-05-13 12:09] LABS: INR 2.4 (0.8-3.0); PARTIAL THROMBOPLASTIN TIME 32.8 SECONDS (26.0-37.0); PROTHROMBIN TIME 26.7 SECONDS (9.7-12.8); TROPONIN-I 0.059 ng/mL (0.000-0.035)
[2020-05-13 15:28] LABS: HEMATOCRIT 46.8 % (42.0-52.0); HEMOGLOBIN 13.7 g/dl (13.5-18.0); MEAN CELL VOLUME 92 fl (80.0-100.0); MEAN CORPUSCULAR HEMOGLOBIN 27 pg (27.0-31.0); MEAN CORPUSCULAR HGB CONC 29 g/dl (33.0-37.0); MEAN PLATELET VOLUME 13.2 fl (7.4-10.4); PLATELET COUNT 305 K/mm3 (130-400); RED BLOOD COUNT 5.09 M/mm3 (4.20-5.60); REDCELL DISTRIBUTION WIDTH-CV 16.5 % (11.5-14.5)
[2020-05-13 15:29] LABS: BAND 3 % (0-10); EOSINOPHIL 3 % (0-4); LYMPHOCYTE 32 % (20.0-51.0); NEUTROPHILS 58 % (42.0-75.2)
[2020-05-13 15:30] LABS: ANISOCYTOSIS 1+; HYPOCHROMIA 3+; PLATELET ESTIMATE NORMAL (NORMAL)
== END 2020-05-11 23:50 | disposition expired ==
LOC: COL.ER 22:08
PROVIDERS: Emergency Medicine
DX: I46.9 Cardiac arrest, cause unspecified (principal); I10 Essential (primary) hypertension; E03.9 Hypothyroidism, unspecified; Z95.4 Presence of other heart-valve replacement; Z86.79 Personal history of other diseases of the circulatory system; Z90.89 Acquired absence of other organs; Z88.0 Allergy status to penicillin; Z88.8 Allergy status to other drugs, medicaments and biological substances; Z79.890 Hormone replacement therapy; Z79.01 Long term (current) use of anticoagulants; Z79.82 Long term (current) use of aspirin
CPT/HCPCS: J0171; J0330; J0461; J3010; J7060; Q9967